=== PATIENT | female | born 1950 | race African-American/Black ===

== ENCOUNTER 2017-12-04 11:04 | Emergency (ER) | payer MEDICARE ==
[2017-12-04 11:14] VITALS: BP 198/95
[2017-12-04] MEDS ORDERED: ZOFRAN IV ONE (11:28)
[2017-12-04] MEDS ORDERED: ZOFRAN ONE (11:29)
[2017-12-04] MEDS ORDERED: NORMODYNE IV ONE (12:55)
[2017-12-04] MEDS ORDERED: NACL 0.9% 1000 ML 1,000 ML IV ONE (12:55)
[2017-12-04] MEDS ORDERED: ANTIVERT PO ONE (12:56)
[2017-12-04] MEDS ORDERED: REGLAN IV ONE (12:56)
--- NOTE | 2017-12-04 12:58 | Emergency Department Report ---
Blank Doc - Documentation Documentation: Patient is a 67-year-old female who is presenting with nausea vomiting and dizziness. Patient's symptoms started last night. Patient has had episodes of vertigo in the past. Patient states she is worse when she tries to move her head. Patient attempted to take 2 doses of meclizine prior to arrival but was unable to keep them down. Patient is here with her son who is her shaping machine tender. Patient's does not have a history of hypertension but her son states that when she is of feeling ill her blood pressure will elevate. Patient has no fevers chills at this time. Patient removed the treatment room for IV fluids and meds for symptomatic relief will be reassessed
--- NOTE | 2017-12-04 14:34 | Emergency Department Report ---
ED Dizziness HPI - General Chief Complaint: Dizziness Stated Complaint: DIZZY Time Seen by Provider: 12/04/17 12:50 Source: patient, family Mode of arrival: Wheelchair Limitations: Language Barrier - History of Present Illness Initial Comments: This is a 67-year-old female nontoxic well in appearance with no signs of distress presents to the ER with complaining of nausea, vomiting and dizziness 1 day. Patient states she has a history of vertigo in the past and similar areas are similar. Patient has been taking Meclizine in the past with symptoms relieved. Patient stated took 2 doses of Meclizine this morning with no relief. Patients son is present for interpretation. Patient denies any chest pain, headache, stiff neck, short of breath, numbness, tingling, back pain or abdominal pain. Patient denies any allergies. MD Complaint: dizziness -: Last night Description: "room spinning" History of Same: Yes History of Trauma: No Severity: mild Improves With: nothing Worsens With: nothing Associated Symptoms: denies other symptoms. denies: ataxia, chest pain, confusion, cough, diaphoresis, fever/chills, loss of appetite, malaise, rash, seizure, shortness of breath, syncope, weakness - Related Data Previous Rx's Medication Instructions Recorded Last Taken Type Meclizine [Antivert] 12.5 mg PO BID PRN #30 tablet 12/04/17 Unknown Rx Allergies Allergy/AdvReac Type Severity Reaction Status Date / Time No Known Allergies Allergy Unverified 12/04/17 11:14 ED Review of Systems ROS: Stated complaint: DIZZY Other details as noted in HPI Constitutional: denies: chills, fever Eyes: denies: eye pain, eye discharge, vision change ENT: denies: ear pain, throat pain Respiratory: denies: cough, shortness of breath, wheezing Cardiovascular: denies: chest pain, palpitations Endocrine: no symptoms reported Gastrointestinal: denies: abdominal pain, nausea, diarrhea Genitourinary: denies: urgency, dysuria, discharge Musculoskeletal: denies: back pain, joint swelling, arthralgia Skin: denies: rash, lesions Neurological: vertigo. denies: headache, weakness, paresthesias Psychiatric: denies: anxiety, depression Hematological/Lymphatic: denies: easy bleeding, easy bruising ED Past Medical Hx - Past Medical History Previous Medical History?: Yes Hx Hypertension: Yes Additional medical history: Vertigo hx, prescribed Meclizine in April 2017 - Surgical History Past Surgical History?: No - Social History Smoking Status: Never Smoker - Medications Home Medications: Home Medications Medication Instructions Recorded Confirmed Last Taken Type Meclizine [Antivert] 12.5 mg PO BID PRN #30 tablet 12/04/17 Unknown Rx ED Physical Exam - General Limitations: Language Barrier General appearance: alert, in no apparent distress - Head Head exam: Present: atraumatic, normocephalic - Eye Eye exam: Present: normal appearance, PERRL, EOMI Pupils: Present: normal accommodation - ENT ENT exam: Present: normal exam, mucous membranes moist - Neck Neck exam: Present: normal inspection, full ROM. Absent: tenderness, meningismus, lymphadenopathy - Respiratory Respiratory exam: Present: normal lung sounds bilaterally. Absent: respiratory distress, wheezes, rales, rhonchi, stridor, chest wall tenderness, accessory muscle use, decreased breath sounds, prolonged expiratory - Cardiovascular Cardiovascular Exam: Present: regular rate, normal rhythm, normal heart sounds. Absent: bradycardia, tachycardia, irregular rhythm, systolic murmur, diastolic murmur, rubs, gallop - GI/Abdominal GI/Abdominal exam: Present: soft, normal bowel sounds. Absent: distended, tenderness, guarding, rebound, rigid, diminished bowel sounds - Extremities Exam Extremities exam: Present: normal inspection, full ROM, normal capillary refill - Back Exam Back exam: Present: normal inspection, full ROM - Neurological Exam Neurological exam: Present: alert, oriented X3, normal gait - Expanded Neurological Exam Expanded Patient oriented to: Present: person, place, time Cranial nerves: EOM's Intact: Normal, Facial Sensation: Normal Cerebellar function: Finger to Nose: Normal Sensory exam: Upper Extremity Light Touch: Normal, Upper Extremity Pin Prick: Normal, Upper Extremity Temperature: Normal, UE 2 Point Discrimination: Normal, Lower Extremity Light Touch: Normal, Lower Extremity Pin Prick: Normal, Lower Extremity Temperature: Normal, LE 2 Point Discrimination: Normal Motor strength exam: RUE: 5, LUE: 5, RLE: 5, LLE: 5 Best Eye Response (Nhan): (4) open spontaneously Best Motor Response (Nhan): (6) obeys commands Best Verbal Response (Amasa): (5) oriented Nhan Total: 15 - Psychiatric Psychiatric exam: Present: normal affect, normal mood - Skin Skin exam: Present: warm, dry, intact, normal color. Absent: rash ED Course Vital Signs 12/04/17 12/04/17 11:11 12:52 Temperature 98.2 F Pulse Rate 78 Respiratory 18 16 Rate Blood Pressure 198/95 O2 Sat by Pulse 98 Oximetry - Reevaluation(s) Reevaluation #1: 12/04/17 14:33 Patient is speaking in full sentences with no signs of distress noted. - Consultations Consultation #1: 12/04/17 14:34 Patient has been consulted with David Schumacher about patient history, physical exam, and labs and examined and screened patient and agrees to ED plan of care and discharge plan of care. ED Medical Decision Making - Medical Decision Making This 67-year-old female that presents with vertigo. Patient stable was examined by me and Dr. Jarquin. Patient received 1 L normal saline and treatment which patient symptoms has resolved and subsided. I will discharge patient with a prescription for Antivert. Son present during exam, interview and discharge for interpretation. Patient was instructed to Follow-up with a primary care doctor in 3-5 days or if symptoms worsen and continue return to emergency room As soon as possible. At time of discharge, the patient does not seem toxic or ill in appearance. No acute signs of distress noted. Patient agrees to discharge treatment plan of care. No further questions noted by the patient. Critical care attestation.: If time is entered above; I have spent that time in minutes in the direct care of this critically ill patient, excluding procedure time. ED Disposition Clinical Impression: Vertigo Disposition: DC-01 TO HOME OR SELFCARE Is pt being admited?: No Does the pt Need Aspirin: No Condition: Stable Instructions: Vertigo (ED), Meclizine (By mouth) Additional Instructions: Follow-up with a primary care doctor in 3-5 days or if symptoms worsen and continue return to emergency room as soon as possible. Prescriptions: Meclizine [Antivert] 12.5 mg PO BID PRN #30 tablet PRN Reason: Vertigo Referrals: PRIMARY CARE, [Primary Care Provider] - 3-5 Days EKATERINA HERNANDEZ MD [Staff Physician] - 3-5 Days [facility] [Outside] - 3-5 Days [facility] [Outside] - 3-5 Days
== END 2017-12-04 15:02 | disposition home or self-care (01) ==
LOC: ED 11:04
DX: R42 Dizziness and giddiness (principal); I10 Essential (primary) hypertension
CPT/HCPCS: 93005; 93010; 96361; 96374; 96375; 99283; J2405; J2765; J7030